=== PATIENT | female | born 2005 | race Asian ===

== ENCOUNTER 2024-02-05 06:48 | Outpatient (REF) | payer OTHER, SELFPAY ==
--- NOTE | ~2024-02-05 | US_ITS ---
EXAMINATION: US PELVIC AND TRANSVAGINAL CLINICAL INFORMATION: Irregular menses. IUD. COMPARISON: None available. TECHNIQUE: Ultrasound of the pelvis is performed using both transabdominal and transvaginal transducers along with Doppler. Transvaginal imaging is performed due to inadequate visualization transabdominally. FINDINGS: UTERUS: The uterus is retroverted and measures 9.2 x 3.2 x 5.6 cm. The double wall endometrial thickness is 4 mm. IUD within the endometrial cavity. The uterus is smooth in contour and has normal myometrial echogenicity. No visible fibroid. ADNEXA: Both ovaries are visualized. There is normal color flow to the adnexa. There is no ovarian torsion. There is no pelvic ascites or fluid collection. Right ovary measures 2.9 x 2.3 x 1.8 cm. Volume of 6.3 mL. Left ovary measures 2.6 x 1.4 x 1.7 cm. Volume of 3.2 mL. US/US pelvic and transvaginal IMPRESSION: 1. IUD within the endometrial cavity. 2. Otherwise unremarkable examination. Electronically signed by: Pedro Petit MD 02/06/2024 04:27 PM [facility]
== END 2024-02-05 06:49 | disposition home or self-care (01) ==
LOC: HO.UMASIMG 06:48
PROVIDERS: Visit Provider Nurse Practitioner Women's Health
DX: N92.6 Irregular menstruation, unspecified (principal)
CPT/HCPCS: 76830; 76856